=== PATIENT | male | born 1965 | race Hispanic/Latino ===

== ENCOUNTER → 2022-03-23 | Outpatient (CLI) | payer BC ==
[~2022-03-23] MED LIST: ACET-2079 PO; GADOTERATE MEGLUMINE 10 MMOL/20 ML VIAL IV ONE; VALA10002 PO
== END | disposition home or self-care (01) ==
LOC: RAH 08:51
PROVIDERS: ATTEND Family Medicine
DX: M47.812 Spondylosis without myelopathy or radiculopathy, cervical region (principal); M54.2 Cervicalgia; M25.78 Osteophyte, vertebrae
CPT/HCPCS: 72156; A9575

== ENCOUNTER → 2025-04-15 | Outpatient (CLI) | payer BC ==
[~2025-04-15] MED LIST changes: -GADOTERATE MEGLUMINE 10 MMOL/20 ML VIAL IV ONE
--- NOTE | 2025-04-16 09:59 | HMCIMG ---
EXAM: CT Chest Without IV contrast. CLINICAL HISTORY: shortness of breath TECHNIQUE: Axial computed tomography images of the chest without intravenous contrast. COMPARISON: None provided. FINDINGS: LUNGS: Subsegmental atelectasis in the inferior lingula, the right middle lobe lateral segment, and the posterobasal segments of both lower lobes. No evidence of pneumonia, focal mass, or active infectious disease PLEURAL SPACES: No pneumothorax evident. No pleural effusions. HEART: No cardiomegaly. No significant pericardial effusion. LYMPH NODES: No lymphadenopathy is evident. UPPER ABDOMEN: The upper abdominal solid organs are unremarkable. BONES: No acute osseous abnormality. Degenerative vertebral changes are present, demonstrated by anterior vertebral osteophytes at multiple levels. IMPRESSION: No pulmonary infiltrates or pleural effusions. Bibasilar atelectasis. /[place]
== END | disposition home or self-care (01) ==
LOC: RAH 13:27
PROVIDERS: ATTEND Family Medicine
DX: J98.11 Atelectasis (principal); R06.02 Shortness of breath; M47.814 Spondylosis without myelopathy or radiculopathy, thoracic region; M25.78 Osteophyte, vertebrae
CPT/HCPCS: 71250